=== PATIENT | male | born 1995 | race Hispanic/Latino ===

== ENCOUNTER 2017-08-28 00:23 | Emergency (ER) | payer OTHER ==
[2017-08-28] MEDS ORDERED: IBUPROFEN 600 MG TABLET ONE (00:39)
[2017-08-28 01:01] LABS: RAPID GROUP A STREP NEGATIVE (NEGATIVE)
[2017-08-28 01:25] LABS: APPEARANCE,URINE Clear (CLEAR); BILIRUBIN,URINE Negative (NEGATIVE); COLOR,URINE Dark Yellow (YELLOW); GLUCOSE, URINE (UA) Negative (NEGATIVE); KETONES,URINE Trace mg/dL (NEGATIVE); LEUKOCYTE ESTERASE ,URINE Trace (NEGATIVE); NITRATE,URINE Negative (NEGATIVE); OCCULT BLOOD,URINE Negative (NEGATIVE); PROTEIN,URINE Negative (NEGATIVE)
[2017-08-28 01:35] LABS: BACTERIA,URINE None Seen /HPF (None Seen); MUCUS,URINE Rare LPF (None Seen); RBC,URINE 0-1 /HPF (0-1); SQUAMOUS EPITHELIAL CELL,UR Rare /LPF (0-2); WBC,URINE 0-1 /HPF (0-1)
[2017-08-28] MEDS ORDERED: AZITHROMYCIN 250 MG TABLET PO ONE (01:43)
== END 2017-08-28 01:52 | disposition home or self-care (01) ==
LOC: EDH 00:23
DX: J18.9 Pneumonia, unspecified organism (principal)
CPT/HCPCS: 71046; 81001; 87804; 87880